=== PATIENT | male | born 1980 | race Hispanic/Latino ===

== ENCOUNTER 2018-05-13 20:51 | Observation (INO) | payer OTHER ==
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
[2018-05-13 21:38] VITALS: BMI 30.4
[2018-05-13] MEDS ORDERED: Morphine 4 mg/ml ISec IVP STA (22:51)
[2018-05-13 23:20] LABS: BASO # 0.02 K/mm3 (0.0-2.0); BASO % 0.1 % (0.0-3.0); GRAN # 14.2 (1.4-6.5); GRAN % 87.5 % (50.0-68.0); HEMOGLOBIN 14.4 g/dL (14.0-18.0); MEAN CELL VOLUME 88.8 fl (80.0-105.0); MEAN PLATELET VOLUME 9.3 fl (7.0-11.0); MONO % 6.4 % (1.0-6.0); RBC 4.64 10^6/uL (3.5-6.1); RED CELL DISTRIBUTION WIDTH 12.3 % (11.5-14.5); WHITE BLOOD COUNT 16.2 10^3/ul (4.5-11.0)
[2018-05-13 23:27] LABS: BLOOD UREA NITROGEN 19 mg/dL (7-21); CALCIUM 9.4 mg/dL (8.4-10.5); GFR AFRICAN-AMERICAN > 60; GFR NON-AFRICAN AMERICAN > 60
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
[2018-05-14 00:48] LABS: INR 1.07 (0.93-1.08); PARTIAL THROMBOPLASTIN TIME 22.7 Seconds (25.1-36.5); PROTHROMBIN TIME 12.2 SECONDS (9.4-12.5)
[2018-05-14] MEDS ORDERED: Morphine 2 mg/ml ISec IVP PRN (01:34)
[2018-05-14] MEDS ORDERED: HYDROmorphone 0.5 mg/0.5 ml ISec IVP STA (02:59)
[2018-05-14 07:47] LABS: BASO # 0.01 K/mm3 (0.0-2.0); BASO % 0.1 % (0.0-3.0); GRAN # 9.67 (1.4-6.5); GRAN % 83.6 % (50.0-68.0); LYMPH % 8.5 % (22.0-35.0); MEAN CELL VOLUME 89.3 fl (80.0-105.0); MEAN CORPUSCULAR HEMOGLOBIN 30.6 pg (25.0-35.0); MEAN CORPUSCULAR HGB CONC 34.2 g/dl (31.0-37.0); MEAN PLATELET VOLUME 9.8 fl (7.0-11.0); MONO # 0.9 (0.1-0.6); MONO % 7.8 % (1.0-6.0); RBC 4.58 10^6/uL (3.5-6.1); RED CELL DISTRIBUTION WIDTH 12.6 % (11.5-14.5); WHITE BLOOD COUNT 11.6 10^3/ul (4.5-11.0)
[2018-05-14 08:12] LABS: BLOOD UREA NITROGEN 17 mg/dL (7-21); CALCIUM 9.1 mg/dL (8.4-10.5); GFR AFRICAN-AMERICAN > 60; GFR NON-AFRICAN AMERICAN > 60
[2018-05-14] MEDS: HYDROmorphone 0.5 mg/0.5 ml ISec IVP PRN ×2 (09:00→12:35)
--- NOTE | 2018-05-14 09:46 | RAD ---
PROCEDURE: CHEST RADIOGRAPH, 1 VIEW HISTORY: Preoperative assessment COMPARISON: None available. FINDINGS: LUNGS: Poor inspiration with low lung volumes, crowded bronchovascular markings and mild bibasilar atelectasis left greater than right PLEURA: No pneumothorax or pleural fluid seen. CARDIOVASCULAR: Normal. OSSEOUS STRUCTURES: Comminuted intra-articular fracture left humeral head with anterior inferior dislocation of the larger humeral fragment VISUALIZED UPPER ABDOMEN: Normal. OTHER FINDINGS: None. IMPRESSION: Comminuted intra-articular fracture left humeral head with anterior inferior dislocation of the larger humeral fragment
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
--- NOTE | 2018-05-14 11:56 | CT ---
PROCEDURE: CT of the left shoulder HISTORY: Left shoulder fx/dislocation COMPARISON: Correlation made with radiographs left shoulder obtained 05/13/2018 TECHNIQUE: Contiguous helical/transaxial images of the left shoulder were obtained. Coronal and sagittal reformats were generated. This CT exam was performed using one or more of the following dose reduction techniques: Automated exposure control, adjustment of the mA and/or kV according to patient size, and/or use of iterative reconstruction technique. Radiation dose. Total DLP = 507.4 mGy- cm FINDINGS: BONES: Comminuted of fracture and dislocation of the left humeral head. The larger humeral head and humeral diaphyseal fragment is inferiorly medially dislocated with respect to the glenoid. Multiple smaller fragments are seen within the glenoid fossa region. Surrounding soft tissue infiltration slightly. . The remaining osseous structures of the shoulder girdle appear intact. Scapula including the glenoid intact. . Left clavicle also intact. SOFT TISSUES: As above. IMPRESSION: Comminuted of fracture and dislocation of the left humeral head. The larger humeral head and humeral diaphyseal fragment is inferiorly medially dislocated with respect to the glenoid. Multiple smaller fragments are seen within the glenoid fossa region. Surrounding soft tissue infiltration slightly. . The remaining osseous structures of the shoulder girdle appear intact. Scapula including the glenoid intact. . Left clavicle also intact No preliminaries report was provided by overnight radiology service
[2018-05-14] MEDS ORDERED: EPINEPHrine 1:1000 Nasal Sol(30mL) ONE (13:20)
[2018-05-14] MEDS ORDERED: Bupivacaine 0.5% Inj(30mL) ONE (13:20)
--- NOTE | 2018-05-14 14:09 | CARD ---
APPROVED REPORT EKG Measurement Heart [id number] <Conclusion> Normal sinus rhythm with sinus arrhythmia Normal ECG
--- NOTE | 2018-05-14 14:51 | CP.PCM.PN ---
<Melvin Valiente - Last Filed: 05/14/18 14:58> Subjective - Date & Time of Evaluation Date of Evaluation: 05/14/18 Time of Evaluation: 06:30 - Subjective Subjective: Patient seen and examined at bedside in no acute distress. States his pain is currently an 8/10 but is currently due for his pain medication. Patient is aware and in agreement with plan for surgery. Patient denies dizziness, headache , loss of consciousness, nausea, vomiting, shortness of breath, fevers, chills. Objective - Vital Signs/Intake and Output Vital Signs (last 24 hours): Temp Pulse Resp BP Pulse Ox 98.2 F 98 H 20 153/100 H 100 05/14/18 14:29 05/14/18 14:29 05/14/18 14:29 05/14/18 14:29 05/14/18 14:29 - Medications Medications: Current Medications Hydromorphone HCl (Dilaudid) 1 mg IVP Q4H PRN PRN Reason: Pain, moderate (4-7) Last Admin: 05/14/18 12:35 Dose: 1 mg Ketorolac Tromethamine (Toradol) 30 mg IVP Q6H PRN PRN Reason: Pain, severe (8-10) Last Admin: 05/14/18 00:08 Dose: 30 mg Ondansetron HCl (Zofran Inj) 4 mg IVP Q4H PRN PRN Reason: Nausea/Vomiting - Labs Labs: 05/14/18 06:30 05/14/18 06:30 PT 12.2 SECONDS (9.4-12.5) 05/13/18 23:06 INR 1.07 (0.93-1.08) 05/13/18 23:06 APTT 22.7 Seconds (25.1-36.5) L 05/13/18 23:06 - Head Exam Head Exam: ATRAUMATIC, NORMAL INSPECTION, NORMOCEPHALIC - Eye Exam Eye Exam: EOMI, Normal appearance - ENT Exam ENT Exam: Mucous Membranes Moist - Neck Exam Neck Exam: Full ROM - Respiratory Exam Respiratory Exam: Clear to Ausculation Bilateral, NORMAL BREATHING PATTERN. absent: Rales, Rhonchi, Wheezes - Cardiovascular Exam Cardiovascular Exam: REGULAR RHYTHM, +S1, +S2 - GI/Abdominal Exam GI & Abdominal Exam: Soft, Normal Bowel Sounds - Extremities Exam Extremities Exam: absent: Normal Inspection (abrasions on bilateral calves and knees) - Neurological Exam Neurological Exam: Alert, Awake, Oriented x3 Neuro motor strength exam: Left Upper Extremity: 2/1, Right Upper Extremity: 5, Left Lower Extremity: 2/1, Right Lower Extremity: 5 - Skin Skin Exam: Abrasion, Normal Color, Warm Assessment and Plan - Assessment and Plan (Free Text) Assessment: 37 year old male with no significant past medical history with dislocation and fracture of the left glenohumeral joint Dislocation fracture of the left glenohumeral joint -Dr. Patel consulted - patient made NPO for operation this afternoon -Patient is low risk for the OR with no significant medical history -CXR, EKG, reveal no abnormalities; patient is low risk -Dilaudid as needed for pain - patient refusing morphine -X-ray of left shoulder reveals: comminuted intra-arrticular fracture left humeral head with anterior inferior dislocation of the larger humeral fragment with smaller fragments seen adjacent to the inerior aspect of the glenoid face and glenoid rim. -CT left shoulder reveals comminuted fracture and dislocation of left humeral head as x-ray findings. Remaining osseous structures of shoulder girdle appear intact including the scapula, glenoid, and left clavicle. -Left foot X-ray reveals no acute fracture or dislocation. Leukocytosis -Monitor CBC -Blood/Wound/Urine cultures ordered; results pending -Urinalysis ordered; results pending Prophylaxis DVT: SCDs GI: Protonix <Marina Bansal - Last Filed: 05/14/18 21:18> Objective - Vital Signs/Intake and Output Vital Signs (last 24 hours): Temp Pulse Resp BP Pulse Ox 98.2 F 89 15 141/80 97 05/14/18 20:41 05/14/18 20:41 05/14/18 20:41 05/14/18 20:41 05/14/18 20:41 - Medications Medications: Current Medications Hydromorphone HCl (Dilaudid) 1 mg IVP Q4H PRN PRN Reason: Pain, moderate (4-7) Last Admin: 05/14/18 12:35 Dose: 1 mg Hydromorphone HCl (Dilaudid) 0.5 mg IVP Q15M PRN PRN Reason: Pain, moderate (4-7) Stop: 05/14/18 21:46 Last Admin: 05/14/18 20:20 Dose: 0.5 mg Lactated Ringer's (Lactated Ringer's) 1,000 mls @ 75 mls/hr IV .[id number] [facility] Stop: 05/14/18 21:46 Ketorolac Tromethamine (Toradol) 30 mg IVP Q6H PRN PRN Reason: Pain, severe (8-10) Last Admin: 05/14/18 00:08 Dose: 30 mg Ondansetron HCl (Zofran Inj) 4 mg IVP Q4H PRN PRN Reason: Nausea/Vomiting Ondansetron HCl (Zofran Inj) 4 mg IVP ONCE PRN PRN Reason: Nausea/Vomiting Pantoprazole Sodium (Protonix Inj) 40 mg IVP DAILY [facility] - Labs Labs: 05/14/18 06:30 05/14/18 06:30 PT 12.2 SECONDS (9.4-12.5) 05/13/18 23:06 INR 1.07 (0.93-1.08) 05/13/18 23:06 APTT 22.7 Seconds (25.1-36.5) L 05/13/18 23:06 Attending/Attestation - Attestation I have personally seen and examined this patient.: Yes I have fully participated in the care of the patient.: Yes I have reviewed all pertinent clinical information, including history, physical exam and plan: Yes Notes (Text): 05/14/18 21:16 Patient seen and examined at bedside. vitals, labs, notes reviewed. Pain levels improved with dilaudid. No new complaints except bruising in left 2nd toe. Underwent left shoulder fracture and dislocation surgery today. Agree with the plan as discussed and outlined by the resident.
[2018-05-14] MEDS ORDERED: Midazolam 2 MG/2 ML VIAL ONE (16:13)
[2018-05-14] MEDS ORDERED: Propofol 10 mg/ml Inj (20 ML) ONE (16:13)
[2018-05-14] MEDS ORDERED: Succinylcholine 200 mg/10 ml Inj IV ONE (16:14)
[2018-05-14] MEDS ORDERED: Rocuronium 10 mg/ml (5 ml) ONE (16:25)
[2018-05-14] MEDS ORDERED: Lidocaine 1% w Epi 1:100,000 Inj ONE (17:03)
[2018-05-14] MEDS ORDERED: Bacitracin Ointment 30 GM TUBE ONE (19:23)
[2018-05-14] MEDS ORDERED: Neostigmine Methylsulfate 3mg/3ml Syringe IV ONE (19:27)
--- NOTE | 2018-05-14 19:44 | PCM.SURG1 ---
Surgeon's Initial Post Op Note - Surgeon's Notes Surgeon: Dr. Amanda MD Feedlot Manager: ALHAJI GalvanM PGY-2 Type of Anesthesia: General Endo Anesthesia Administered By: Dr. Naresh MD Pre-Operative Diagnosis: fracture and dislocation of left shoulder Operative Findings: see operative report Post-Operative Diagnosis: same Operation Performed: ORIF left shoulder with screw fixation Specimen/Specimens Removed: none Estimated Blood Loss: EBL {In ML}: 100 Blood Products Given: N/A Drains Used: No Drains Post-Op Condition: Good Date of Surgery/Procedure: 05/14/18 Time of Surgery/Procedure: 17:00
[2018-05-14] MEDS ORDERED: Lactated Ringer's 1,000 ML IV SCH (19:45)
[2018-05-14] MEDS ORDERED: HYDROmorphone 0.5 mg/0.5 ml ISec IVP PRN (19:45)
[2018-05-14] MEDS ORDERED: HYDROmorphone 0.5 mg/0.5 ml ISec ONE (20:24)
[2018-05-14 23:10] VITALS: RESP 20; O2SAT 98
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
[2018-05-15] MEDS: HYDROmorphone 0.5 mg/0.5 ml ISec IVP PRN ×2 (05:28→12:43)
--- NOTE | 2018-05-15 07:25 | RAD ---
PROCEDURE: Radiographs of the Left Shoulder HISTORY: s/p ORIF L shoulder COMPARISON: 05/13/2018. FINDINGS: BONES: Satisfactory position major fracture fragments (associated with anterior dislocation of the prior study.) JOINTS: Preserved glenohumeral relationship SOFT TISSUES: Normal. OTHER FINDINGS: None. IMPRESSION: Satisfactory postoperative status
[2018-05-15 07:40] LABS: BASO # 0.01 K/mm3 (0.0-2.0); BASO % 0.1 % (0.0-3.0); GRAN # 5.82 (1.4-6.5); GRAN % 71.5 % (50.0-68.0); HEMOGLOBIN 11.9 g/dL (14.0-18.0); LYMPH # 1.4 (1.2-3.4); LYMPH % 16.7 % (22.0-35.0); MEAN CELL VOLUME 90.6 fl (80.0-105.0); MEAN CORPUSCULAR HEMOGLOBIN 30.2 pg (25.0-35.0); MEAN CORPUSCULAR HGB CONC 33.3 g/dl (31.0-37.0); MONO % 11.7 % (1.0-6.0); RBC 3.94 10^6/uL (3.5-6.1); RED CELL DISTRIBUTION WIDTH 12.6 % (11.5-14.5); WHITE BLOOD COUNT 8.1 10^3/ul (4.5-11.0)
[2018-05-15 07:52] LABS: BLOOD UREA NITROGEN 13 mg/dL (7-21); CALCIUM 8.3 mg/dL (8.4-10.5); GFR AFRICAN-AMERICAN > 60; GFR NON-AFRICAN AMERICAN > 60
[2018-05-15 07:53] VITALS: BP 130/83; PULSE 104; TEMP 99
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
[2018-05-15] MEDS ORDERED: Bacitracin 500 Units/gm Oint Foilpak UD ONE (13:30)
--- NOTE | 2018-05-16 11:20 | RAD ---
PROCEDURE: Fluoroscopy over 1 hour HISTORY: ORIF LEFT SHOULDER COMPARISON: TECHNIQUE: Fluoro time 1:00 10.5 seconds. Cumulative dose 11.38 mGy. Three images were submitted FINDINGS: The study shows reduction of the shoulder dislocation and 2 screws fixating the displaced fracture of the humeral neck and greater tuberosity. No complicating factors IMPRESSION: As above
== END 2018-05-15 18:37 | disposition home or self-care (01) ==
LOC: ED 20:51 → ERH 23:02 → 5RNO 05-14 02:23
PROVIDERS: ADMIT Internal Medicine; ATTEND Internal Medicine
DX: S42.252A Displaced fracture of greater tuberosity of left humerus, initial encounter for closed fracture (principal); D72.829 Elevated white blood cell count, unspecified; V28.4XXA Motorcycle driver injured in noncollision transport accident in traffic accident, initial encounter; W19.XXXA Unspecified fall, initial encounter; Z87.891 Personal history of nicotine dependence; S40.812A Abrasion of left upper arm, initial encounter; S40.811A Abrasion of right upper arm, initial encounter; S80.812A Abrasion, left lower leg, initial encounter; S80.811A Abrasion, right lower leg, initial encounter
CPT/HCPCS: 23585; 36415; 71045; 73030; 73200; 73630; 76001; 80048; 85025; 85610; 85730; 93005; 96374; 96375; 96376; 99285; C9113; G0378; J0330; J0690; J1170; J1885; J2250; J2270; J2405; J2704; J2710; J3010